=== PATIENT | female | born 1995 | race Caucasian/White ===

== ENCOUNTER 2017-10-08 04:16 | Emergency (ER) | payer BC ==
[~2017-10-08] VITALS: Ht 154.9 cm; Wt 43.0 kg
[~2017-10-08 04:16] MED LIST: FLOMAX0.4 MG PO; JUNEL FE 1.5-31 EACH PO; KEFLEX500 MG PO; NOHOMEMEDS; PERCOCET 5/31 TABLET PO; ZOFRAN4 MG PO
[2017-10-08 05:04] LABS: APPEARANCE CLOUDY ((CLEAR)); BILIRUBIN NEGATIVE; BLOOD NEGATIVE; COLOR AMBER ((YELLOW)); GLUCOSE (STRIP) 50; KETONES 5; LEUKOCYTES NEGATIVE; NITRITE NEGATIVE; PROTEIN (STRIP) >=500; SPECIFIC GRAVITY 1.028 (1.000-1.030); UROBILINOGEN 0.2 MG/DL (0.2-1.0)
[2017-10-08 05:06] LABS: HEMATOCRIT 41.3 % (36.0-46.0); HEMOGLOBIN 14.5 G/DL (11.9-15.5); MCH 30.8 PG (29.0-34.0); MCHC 35.1 G/DL (30.0-36.0); MCV 87.7 FL (83-99); PLATELET COUNT 319 K/uL (156-360); RBC DIS.WIDTH-CV 11.8 % (11.8-14.6); RED BLOOD COUNT 4.71 M/uL (3.80-5.20); WHITE BLOOD COUNT 15.1 K/uL (4.1-10.2)
[2017-10-08 05:13] LABS: AMPHETAMINE NEGATIVE (500 ng/mL); BARBITURATES NEGATIVE (200 ng/mL); BENZODIAZEPINES NEGATIVE (150 ng/mL); BUPRENORPHINE NEGATIVE (10 ng/mL); COCAINE NEGATIVE (150 ng/mL); METHADONE NEGATIVE (200 ng/mL); METHAMPHETAMINE NEGATIVE (500 ng/mL); OPIATES (MORPHINE) NEGATIVE (100 ng/mL); OXYCODONE NEGATIVE (100 ng/mL); PHENCYCLIDINE NEGATIVE (25 ng/mL); PROPOXYPHENE NEGATIVE (300 ng/mL); THC CANNABINOIDS NEGATIVE (50 ng/mL); TRICYCLIC ANTIDEPRESSANTS NEGATIVE (300 ng/mL)
[2017-10-08 05:17] LABS: CHLORIDE 110 mEq/L (99-109); POTASSIUM 3.6 mEq/L (3.7-5.4); SODIUM 143 mEq/L (136-147)
[2017-10-08 05:19] LABS: GLUCOSE 103 mg/dL (70-99)
[2017-10-08 05:22] LABS: SERUM ETHYL ALCOHOL 61 mg/dL
[2017-10-08 05:22] LABS: RED BLOOD CELLS 0-5 /HPF (0-5); WHITE BLOOD CELLS 0-5 /HPF (0-5)
[2017-10-08 05:23] LABS: BACTERIA 1+ /HPF; EPITHELIAL CELLS 1+ /HPF; MUCUS 1+ /LPF; UCUL ADDED? NO
[2017-10-08 05:23] LABS: CREATININE 0.8 mg/dL (0.6-1.3); GFR ESTIMATE (CALCULATED) > 59 mL/min/
[2017-10-08 05:24] LABS: UREA NITROGEN (BUN) 6 mg/dL (9-23)
[2017-10-08 05:58] LABS: QUANTITATIVE HCG < 4.0 MIU/ML
[2017-10-08 06:30] VITALS: BP 116/74
== END 2017-10-08 06:31 | disposition home or self-care (01) ==
LOC: EME 04:16
PROVIDERS: Emergency Medicine
DX: F32.9 Major depressive disorder, single episode, unspecified (principal); R80.9 Proteinuria, unspecified; Z91.5 Personal history of self-harm
CPT/HCPCS: 80048; 81003; 84702; 85027; 90837; 99281; 99285; G0480

== ENCOUNTER 2017-10-21 00:44 | Inpatient (IN) | payer BC ==
[~2017-10-21] VITALS: Ht 154.9 cm; Wt 44.7 kg
[2017-10-21] VITALS (8 sets, daily range): BP systolic 102–125; BP diastolic 67–88
[2017-10-21 01:33] LABS: HEMATOCRIT 39.8 % (36.0-46.0); HEMOGLOBIN 13.8 G/DL (11.9-15.5); MCH 30.7 PG (29.0-34.0); MCHC 34.7 G/DL (30.0-36.0); MCV 88.6 FL (83-99); PLATELET COUNT 355 K/uL (156-360); RBC DIS.WIDTH-CV 12.3 % (11.8-14.6); RBC DIS.WIDTH-SD 39.8 % (39-53); RED BLOOD COUNT 4.49 M/uL (3.80-5.20); WHITE BLOOD COUNT 10.4 K/uL (4.1-10.2)
[2017-10-21 01:49] LABS: ALBUMIN 4.2 g/dL (3.2-4.8); CHLORIDE 108 mEq/L (99-109); POTASSIUM 3.4 mEq/L (3.7-5.4)
[2017-10-21 01:50] LABS: SODIUM 141 mEq/L (136-147)
[2017-10-21 01:52] LABS: GLUCOSE 126 mg/dL (70-99); TOTAL PROTEIN 6.8 g/dL (6.4-8.3)
[2017-10-21 01:54] LABS: TOTAL BILIRUBIN 0.9 mg/dL (0.0-1.0)
[2017-10-21 01:55] LABS: SERUM ETHYL ALCOHOL 48 mg/dL
[2017-10-21 01:56] LABS: ALKALINE PHOSPHATASE 62 IU/L (3-129); CREATININE 0.7 mg/dL (0.6-1.3); GFR ESTIMATE (CALCULATED) > 59 mL/min/
[2017-10-21 01:57] LABS: AST (GOT) 14 IU/L (2-34)
[2017-10-21 01:58] LABS: UREA NITROGEN (BUN) 5 mg/dL (9-23)
[2017-10-21 01:59] LABS: ALT (GPT) 10 IU/L (3-49); SALICYLATE < 5.0 MG/DL (15-30)
[2017-10-21 02:00] LABS: LIPASE 28 U/L (1.0-51.0)
[2017-10-21 02:07] LABS: QUANTITATIVE HCG < 4.0 MIU/ML
[2017-10-21 02:10] LABS: ACETAMINOPHEN (TYLENOL) 249 mcg/mL (10-30)
[2017-10-21 03:51] LABS: AMPHETAMINE NEGATIVE (500 ng/mL); BARBITURATES NEGATIVE (200 ng/mL); BENZODIAZEPINES NEGATIVE (150 ng/mL); BUPRENORPHINE NEGATIVE (10 ng/mL); COCAINE NEGATIVE (150 ng/mL); METHADONE NEGATIVE (200 ng/mL); METHAMPHETAMINE NEGATIVE (500 ng/mL); OPIATES (MORPHINE) NEGATIVE (100 ng/mL); OXYCODONE NEGATIVE (100 ng/mL); PHENCYCLIDINE NEGATIVE (25 ng/mL); PROPOXYPHENE NEGATIVE (300 ng/mL); THC CANNABINOIDS NEGATIVE (50 ng/mL); TRICYCLIC ANTIDEPRESSANTS NEGATIVE (300 ng/mL)
[2017-10-21 05:30] LABS: INTER. NORMALIZED RATIO 1.1
[2017-10-21 05:32] LABS: PTT 28.5 SEC (25-37)
[2017-10-22 00:25] LABS: ALBUMIN 3.4 g/dL (3.2-4.8); CHLORIDE 111 mEq/L (99-109); POTASSIUM 3.7 mEq/L (3.7-5.4); SODIUM 141 mEq/L (136-147)
[2017-10-22 00:26] LABS: MAGNESIUM 1.6 mg/dL (1.3-2.7)
[2017-10-22 00:27] LABS: GLUCOSE 108 mg/dL (70-99)
[2017-10-22 00:29] LABS: TOTAL BILIRUBIN 0.9 mg/dL (0.0-1.0)
[2017-10-22 00:31] LABS: ALKALINE PHOSPHATASE 47 IU/L (3-129); CREATININE 0.7 mg/dL (0.6-1.3); GFR ESTIMATE (CALCULATED) > 59 mL/min/; PHOSPHORUS 2.6 mg/dL (2.5-4.9)
[2017-10-22 00:32] LABS: UREA NITROGEN (BUN) 2 mg/dL (9-23)
[2017-10-22 00:33] VITALS: BP 114/66
[2017-10-22 00:33] LABS: AST (GOT) 9 IU/L (2-34)
[2017-10-22 00:34] LABS: ACETAMINOPHEN (TYLENOL) < 10 mcg/mL (10-30); ALT (GPT) 7 IU/L (3-49)
[2017-10-22 00:51] LABS: TOTAL PROTEIN 5.3 g/dL (6.4-8.3)
[2017-10-22 04:31] VITALS: BP 112/65
[2017-10-22 05:51] LABS: INTER. NORMALIZED RATIO 1.3
[2017-10-22 07:07] LABS: HEMATOCRIT 35.9 % (36.0-46.0); HEMOGLOBIN 11.9 G/DL (11.9-15.5); MCH 30.8 PG (29.0-34.0); MCHC 33.1 G/DL (30.0-36.0); PLATELET COUNT 280 K/uL (156-360); RBC DIS.WIDTH-CV 12.8 % (11.8-14.6); RBC DIS.WIDTH-SD 43.5 % (39-53); RED BLOOD COUNT 3.86 M/uL (3.80-5.20); WHITE BLOOD COUNT 9.2 K/uL (4.1-10.2)
[2017-10-22 07:23] VITALS: BP 108/78
[2017-10-22 07:32] LABS: ALKALINE PHOSPHATASE 35 IU/L (3-129); ALT (GPT) 7 IU/L (3-49); AST (GOT) 10 IU/L (2-34); CHLORIDE 111 MEQ/L (99-109); CREATININE 0.7 MG/DL (0.6-1.3); GFR ESTIMATE (CALCULATED) > 59 mL/min/; GLUCOSE 99 mg/dL (70-99); POTASSIUM 3.9 MEQ/L (3.7-5.4); SODIUM 142 MEQ/L (136-147); TOTAL BILIRUBIN 0.7 MG/DL (0.0-1.0); TOTAL PROTEIN 4.8 G/DL (6.4-8.3)
[2017-10-22 07:40] LABS: UREA NITROGEN (BUN) < 2 mg/dL (9-23)
[2017-10-22 11:34] VITALS: BP 100/58
[2017-10-22 16:24] VITALS: BP 106/70
[2017-10-23 00:13] VITALS: BP 108/62
[2017-10-23 07:01] LABS: INTER. NORMALIZED RATIO 1.1
[2017-10-23 07:18] LABS: ACETAMINOPHEN (TYLENOL) < 10 MCG/ML (10-30); ALBUMIN 3.3 G/DL (3.2-4.8); ALKALINE PHOSPHATASE 44 IU/L (3-129); ALT (GPT) 7 IU/L (3-49); AST (GOT) 10 IU/L (2-34); CHLORIDE 108 MEQ/L (99-109); CREATININE 0.6 MG/DL (0.6-1.3); GFR ESTIMATE (CALCULATED) > 59 mL/min/; GLUCOSE 112 mg/dL (70-99); POTASSIUM 3.8 MEQ/L (3.7-5.4); SODIUM 138 MEQ/L (136-147); TOTAL PROTEIN 5.2 G/DL (6.4-8.3); UREA NITROGEN (BUN) 6 mg/dL (9-23)
[2017-10-23 07:19] LABS: TOTAL BILIRUBIN 0.3 MG/DL (0.0-1.0)
[2017-10-23 08:21] VITALS: BP 109/54
[2017-10-24] MEDS ORDERED: SERTRALINE HCL50 MG PO (10:55)
== END 2017-10-23 11:30 | DRG 918 ==
LOC: EME 00:44 → EDOF 04:53 → ENRESERV 04:55 → 4WEST 05:46 → ENRESERV 17:40 → 4WEST 18:06 → ENRESERV 18:11 → 5EAST 20:24 → ENPENDDIS 10-23 → 5EAST 10-23 11:30
PROVIDERS: Emergency Medicine; Internal Medicine; Physician Assistant; Surgery
DX: T39.1X2A Poisoning by 4-Aminophenol derivatives, intentional self-harm, initial encounter (principal); T51.0X2A Toxic effect of ethanol, intentional self-harm, initial encounter; R11.2 Nausea with vomiting, unspecified; S61.511A Laceration without foreign body of right wrist, initial encounter; S61.512A Laceration without foreign body of left wrist, initial encounter; X78.1XXA Intentional self-harm by knife, initial encounter; F43.21 Adjustment disorder with depressed mood; F60.89 Other specific personality disorders; Z87.442 Personal history of urinary calculi; Z82.0 Family history of epilepsy and other diseases of the nervous system
CPT/HCPCS: 80053; 83690; 83735; 84100; 84702; 85027; 85610; 85730; 87641; 93005; 99281; 99285; G0480; J0132; J1650; J2405; J3480; J7030; J7040; J7060; J7070

== ENCOUNTER 2017-10-23 10:37 | Inpatient (IN) | payer BC ==
[~2017-10-23] VITALS: Ht 154.9 cm; Wt 44.7 kg
[2017-10-23 11:47] VITALS: BP 121/87
[2017-10-23 11:54] VITALS: BP 121/87
[2017-10-23 16:10] VITALS: BP 109/58
[2017-10-24 08:04] VITALS: BP 110/59
[2017-10-24] MEDS ORDERED: SERTRALINE HCL50 MG PO (10:55)
== END 2017-10-24 12:47 | disposition home or self-care (01) | DRG 881 ==
LOC: 1WEST 10:37
DX: F43.21 Adjustment disorder with depressed mood (principal); F33.9 Major depressive disorder, recurrent, unspecified; F60.9 Personality disorder, unspecified; X78.1XXD Intentional self-harm by knife, subsequent encounter; F40.240 Claustrophobia; S61.512D Laceration without foreign body of left wrist, subsequent encounter; S61.511D Laceration without foreign body of right wrist, subsequent encounter; Z91.5 Personal history of self-harm; T39.1X2D Poisoning by 4-Aminophenol derivatives, intentional self-harm, subsequent encounter
CPT/HCPCS: 97165 GO; Q0177